=== PATIENT | female | born 1985 | race Caucasian/White ===

== ENCOUNTER 2019-01-14 08:00 | Emergency (ER) | payer SELFPAY ==
[~2019-01-14] VITALS: Ht 167.6 cm; Wt 71.2 kg
[2019-01-14 08:14] VITALS: Ht 167.6 cm; Wt 71.2 kg
[2019-01-14 09:13] VITALS: BP 122/67
== END 2019-01-14 09:14 | disposition home or self-care (01) ==
LOC: ED 08:00
DX: B86 Scabies (principal); F41.9 Anxiety disorder, unspecified; F32.9 Major depressive disorder, single episode, unspecified